=== PATIENT | male | born 1960 | race Asian ===

== ENCOUNTER 2018-06-08 07:23 | Outpatient (CLI) | payer BC ==
[2018-06-08 08:07] LABS: Basophils % (Auto) 0.6 % (0.0-1.8); Eosinophils # (Auto) 0.1 K/mm3 (0.0-0.4); Eosinophils % (Auto) 2.3 % (0.0-4.3); Hematocrit 45.4 % (35.5-45.6); Hemoglobin 15.4 gm/dl (11.8-15.2); Lymphocytes # (Auto) 2.4 K/mm3 (1.2-5.4); Lymphocytes % (Auto) 38.9 % (13.4-35.0); Mean Corpuscular HGB Conc 34 % (32-34); Mean Corpuscular Volume 101 fl (84-94); Monocytes # (Auto) 0.6 K/mm3 (0.0-0.8); Monocytes % (Auto) 9.5 % (0.0-7.3); Platelet Count 155 K/mm3 (140-440); Red Blood Count 4.51 M/mm3 (3.65-5.03)
[2018-06-08 08:23] LABS: Bilirubin,Urine NEG (Negative); Blood,Urine LG (Negative); Color,Urine Yellow (Yellow); Mucus,Urine FEW /HPF; Protein,Urine <15 mg/dL mg/dL (Negative); Urobilinogen,Urine < 2.0 mg/dL (<2.0)
[2018-06-08 08:24] LABS: Alanine Aminotransferase 19 units/L (7-56); Albumin 4.3 g/dL (3.9-5); BUN/Creatinine Ratio 15; Blood Urea Nitrogen 16 mg/dL (9-20); Calcium 9.4 mg/dL (8.4-10.2); Chol/HDL Ratio 2.37 %; HDL Cholesterol 78 mg/dL (40-59); Hemolysis Index 8; LDL Cholesterol,Direct 110 mg/dL (50-130)
[2018-06-08 08:52] LABS: Erythrocyte Sedimentation Rate 7 mm/Hr (0-20)
[2018-06-08 10:13] LABS: Microalbumin/Creatinine Ratio 8.5 ug/mg
== END 2018-06-08 07:24 | disposition home or self-care (01) ==
LOC: LAB 07:23
PROVIDERS: ATTEND Family Medicine
DX: Z00.01 Encounter for general adult medical examination with abnormal findings (principal)
CPT/HCPCS: 36415; 80053; 80061; 81001; 82043; 82306; 82607; 82747; 83036; 84153; 84443; 84550; 85025; 85652; 86140; 87591; 87806

== ENCOUNTER 2019-05-24 08:39 | Outpatient (CLI) | payer BC ==
[2019-05-24 09:55] LABS: Basophils % (Auto) 0.6 % (0.0-1.8); Eosinophils # (Auto) 0.4 K/mm3 (0.0-0.4); Eosinophils % (Auto) 7.6 % (0.0-4.3); Hematocrit 40.6 % (35.5-45.6); Hemoglobin 13.8 gm/dl (11.8-15.2); Lymphocytes # (Auto) 1.9 K/mm3 (1.2-5.4); Lymphocytes % (Auto) 37.3 % (13.4-35.0); Mean Corpuscular HGB Conc 34 % (32-34); Mean Corpuscular Volume 97 fl (84-94); Monocytes # (Auto) 0.5 K/mm3 (0.0-0.8); Monocytes % (Auto) 9.5 % (0.0-7.3); Platelet Count 164 K/mm3 (140-440); Red Blood Count 4.19 M/mm3 (3.65-5.03); Red Cell Distribution Width 13.5 % (13.2-15.2)
[2019-05-24 10:16] LABS: Alanine Aminotransferase 12 units/L (7-56); Albumin 4.1 g/dL (3.9-5); BUN/Creatinine Ratio 16; Blood Urea Nitrogen 16 mg/dL (9-20); Calcium 9.1 mg/dL (8.4-10.2); Chol/HDL Ratio 2.53 %; HDL Cholesterol 63 mg/dL (40-59); Hemolysis Index 2; LDL Cholesterol,Direct 85 mg/dL (50-130); Uric Acid 6.5 mg/dL (3.5-7.6)
[2019-05-24 10:20] LABS: Free T4 (Free Thyroxine) 1.37 ng/dL (0.76-1.46)
[2019-05-24 10:23] LABS: Erythrocyte Sedimentation Rate 8 mm/Hr (0-20)
[2019-05-28 09:28] LABS: Vitamin D, 25-OH, D2 54 ng/mL
== END 2019-05-24 08:40 | disposition home or self-care (01) ==
LOC: LAB 08:39
PROVIDERS: ATTEND Family Medicine
DX: J45.20 Mild intermittent asthma, uncomplicated (principal); J30.9 Allergic rhinitis, unspecified
CPT/HCPCS: 36415; 80053; 80061; 82306; 82550; 82607; 82652; 82747; 82785; 83036; 83615; 84153; 84402; 84439; 84443; 84480; 84550; 85025; 85652; 86140

== ENCOUNTER 2020-06-14 15:26 | Outpatient (CLI) | payer BC ==
--- NOTE | 2020-06-14 16:43 | XRay Report ---
CHEST 2 VIEWS INDICATION / CLINICAL INFORMATION: Pneumonia. COMPARISON: None available. FINDINGS: SUPPORT DEVICES: None. HEART / MEDIASTINUM: No significant abnormality. LUNGS / PLEURA: There is mild parenchymal opacification in the left lower lobe. No pneumothorax. ADDITIONAL FINDINGS: No significant additional findings. IMPRESSION: 1. Mild left lower lobe parenchymal opacification which may indicate pneumonia. Signer Name: Abhilash Holland MD Signed: 06/14/2020 4:38 PM Workstation Name: [id number]
== END 2020-06-14 15:27 | disposition home or self-care (01) ==
LOC: XRAY 15:26
PROVIDERS: ATTEND Internal Medicine
DX: J18.9 Pneumonia, unspecified organism (principal); R91.8 Other nonspecific abnormal finding of lung field
CPT/HCPCS: 71046

== ENCOUNTER 2020-06-19 15:47 | Outpatient (CLI) | payer BC ==
[2020-06-19 16:41] LABS: Hematocrit 40.9 % (35.5-45.6); Hemoglobin 13.8 gm/dl (11.8-15.2); Mean Corpuscular HGB Conc 34 % (32-34); Mean Corpuscular Volume 97 fl (84-94); Platelet Count 169 K/mm3 (140-440); Red Blood Count 4.21 M/mm3 (3.65-5.03); Red Cell Distribution Width 14.4 % (13.2-15.2)
[2020-06-19 16:57] LABS: ABG Base Excess 0.7 mmol/L (-2.0-3.0); ABG Methemoglobin 0.9 % (0.0-1.5); ABG Oxygen Saturation 93.5 % (95.0-99.0); ABG PCO2 34.5 mm Hg; ABG PH 7.461 pH Units (7.350-7.450); ABG PO2 60.6 mm Hg (80.0-90.0)
[2020-06-19 17:12] LABS: Alanine Aminotransferase 35 units/L (7-56); Albumin 3.6 g/dL (3.9-5); BUN/Creatinine Ratio 32; Blood Urea Nitrogen 29 mg/dL (9-20); Calcium 8.6 mg/dL (8.4-10.2); Chol/HDL Ratio 1.57 %; HDL Cholesterol 130 mg/dL (40-59); Hemolysis Index 10; LDL Cholesterol,Direct 87 mg/dL (50-130)
[2020-06-19 22:30] LABS: Total Cells Counted 100
[2020-06-19 22:31] LABS: Band Neutrophils # (Manual) 0.1 K/mm3; Ovalocytes Rare
[2020-06-19 22:32] LABS: Platelet Estimate Consistent w Auto
== END 2020-06-19 15:48 | disposition home or self-care (01) ==
LOC: LAB 15:47
PROVIDERS: ATTEND Internal Medicine
DX: U07.1 COVID-19 (principal)
CPT/HCPCS: 36415; 80053; 80061; 82164; 82550; 82728; 82803; 83615; 83880; 84436; 84443; 84484; 85007; 85025; 85379; 86140

== ENCOUNTER 2020-07-04 15:06 | Outpatient (CLI) | payer BC ==
[2020-07-04 16:04] LABS: ABG Base Excess 1.4 mmol/L (-2.0-3.0); ABG HCO3 23.9 mmol/L (20.0-26.0); ABG Methemoglobin 0.7 % (0.0-1.5); ABG Oxygen Saturation 95.5 % (95.0-99.0); ABG PCO2 31.8 mm Hg; ABG PH 7.493 pH Units (7.350-7.450); ABG PO2 65.1 mm Hg (80.0-90.0)
[2020-07-04 16:23] LABS: Bilirubin,Urine NEG (Negative); Blood,Urine MOD (Negative); Color,Urine Straw (Yellow); Creatinine,Urine 12.2 mg/dL (0.1-20.0); Microalbumin/Creatinine Ratio 98.3 ug/mg; Protein,Urine <15 mg/dL mg/dL (Negative); Urobilinogen,Urine < 2.0 mg/dL (<2.0); WBC,Urine < 1.0 /HPF (0.0-6.0)
[2020-07-04 16:27] LABS: Hematocrit 42.1 % (35.5-45.6); Hemoglobin 14.2 gm/dl (11.8-15.2); Mean Corpuscular HGB Conc 34 % (32-34); Mean Corpuscular Volume 98 fl (84-94); Platelet Count 213 K/mm3 (140-440); Red Cell Distribution Width 16.1 % (13.2-15.2)
[2020-07-04 16:47] LABS: C-Reactive Protein 0.4 mg/dL (0.00-1.30)
[2020-07-04 16:48] LABS: Alanine Aminotransferase 32 units/L (7-56); Albumin 3.8 g/dL (3.9-5); BUN/Creatinine Ratio 30; Blood Urea Nitrogen 24 mg/dL (9-20); Chol/HDL Ratio 1.92 %; HDL Cholesterol 116 mg/dL (40-59); Hemolysis Index 5; LDL Cholesterol,Direct 116 mg/dL (50-130); Uric Acid 5.4 mg/dL (3.5-7.6)
--- NOTE | 2020-07-04 16:48 | XRay Report ---
CHEST 2 VIEWS INDICATION / CLINICAL INFORMATION: FOLLOW UP ON INFILTRATION. COMPARISON: 06/14/2020 FINDINGS: SUPPORT DEVICES: None. HEART / MEDIASTINUM: No significant abnormality. LUNGS / PLEURA: Linear opacity persists in both lung bases and may be chronic No pneumothorax. ADDITIONAL FINDINGS: No significant additional findings. IMPRESSION: Linear opacity persists in both lung bases and may be chronic. Overall no interval change from 021 Signer Name: Kenneth Jones MD FACR Signed: 07/04/2020 4:43 PM Workstation Name: [id number]
[2020-07-04 17:11] LABS: Erythrocyte Sedimentation Rate 30 mm/Hr (0-20)
[2020-07-04 17:18] LABS: Band Neutrophils # (Manual) 0.2 K/mm3; Total Cells Counted 100
[2020-07-04 17:19] LABS: Platelet Estimate Consistent w Auto; RBC Morphology Normal
== END 2020-07-04 15:07 | disposition home or self-care (01) ==
LOC: LAB 15:06
PROVIDERS: ATTEND Internal Medicine
DX: U07.1 COVID-19 (principal)
CPT/HCPCS: 36415; 71046; 80053; 80061; 81001; 82043; 82150; 82550; 82652; 82728; 82803; 83036; 83615; 83690; 83735; 84100; 84153; 84443; 84550; 85007; 85025; 85379; 85652; 86140

== ENCOUNTER 2020-07-18 14:38 | Outpatient (CLI) | payer BC ==
[2020-07-18 15:20] LABS: Alanine Aminotransferase 25 units/L (7-56); Albumin 3.4 g/dL (3.9-5); BUN/Creatinine Ratio 31; Blood Urea Nitrogen 22 mg/dL (9-20); Calcium 8.9 mg/dL (8.4-10.2); Hemolysis Index 4
[2020-07-18 16:29] LABS: Erythrocyte Sedimentation Rate 29 mm/Hr (0-20)
[2020-07-18 16:32] LABS: Basophils % (Auto) 0.4 % (0.0-1.8); Eosinophils # (Auto) 0.1 K/mm3 (0.0-0.4); Eosinophils % (Auto) 0.7 % (0.0-4.3); Hematocrit 39.1 % (35.5-45.6); Hemoglobin 12.9 gm/dl (11.8-15.2); Lymphocytes # (Auto) 3.7 K/mm3 (1.2-5.4); Lymphocytes % (Auto) 38.8 % (13.4-35.0); Mean Corpuscular HGB Conc 33 % (32-34); Mean Corpuscular Volume 100 fl (84-94); Monocytes # (Auto) 1.1 K/mm3 (0.0-0.8); Monocytes % (Auto) 11.5 % (0.0-7.3); Platelet Count 230 K/mm3 (140-440); Red Blood Count 3.91 M/mm3 (3.65-5.03); Red Cell Distribution Width 16.5 % (13.2-15.2)
== END 2020-07-18 14:39 | disposition home or self-care (01) ==
LOC: LAB 14:38
PROVIDERS: ATTEND Internal Medicine
DX: I50.31 Acute diastolic (congestive) heart failure (principal)
CPT/HCPCS: 36415; 80053; 82728; 83615; 83880; 84443; 85025; 85379; 85652; 86140

== ENCOUNTER 2020-08-09 16:00 | Outpatient (CLI) | payer BC ==
[2020-08-09 16:35] LABS: Basophils # (Auto) 0.1 K/mm3 (0.0-0.1); Basophils % (Auto) 0.5 % (0.0-1.8); Eosinophils # (Auto) 0.1 K/mm3 (0.0-0.4); Eosinophils % (Auto) 1.1 % (0.0-4.3); Hematocrit 44.9 % (35.5-45.6); Hemoglobin 14.8 gm/dl (11.8-15.2); Lymphocytes # (Auto) 3.2 K/mm3 (1.2-5.4); Mean Corpuscular HGB Conc 33 % (32-34); Mean Corpuscular Volume 99 fl (84-94); Monocytes # (Auto) 1.1 K/mm3 (0.0-0.8); Monocytes % (Auto) 8.8 % (0.0-7.3); Platelet Count 174 K/mm3 (140-440); Red Blood Count 4.55 M/mm3 (3.65-5.03); Red Cell Distribution Width 16.1 % (13.2-15.2)
[2020-08-09 17:02] LABS: Alanine Aminotransferase 28 units/L (7-56); Albumin 3.9 g/dL (3.9-5); Blood Urea Nitrogen 28 mg/dL (9-20); Calcium 9.4 mg/dL (8.4-10.2); Chol/HDL Ratio 1.74 %; HDL Cholesterol 120 mg/dL (40-59); Hemolysis Index 12; LDL Cholesterol,Direct 102 mg/dL (50-130); Uric Acid 5.1 mg/dL (3.5-7.6)
[2020-08-09 17:07] LABS: BUN/Creatinine Ratio 40
== END 2020-08-09 16:01 | disposition home or self-care (01) ==
LOC: LAB 16:00
PROVIDERS: ATTEND Family Medicine
DX: Z00.00 Encounter for general adult medical examination without abnormal findings (principal); R09.02 Hypoxemia; J12.82 Pneumonia due to coronavirus disease 2019
CPT/HCPCS: 36415; 80053; 80061; 82306; 82607; 82728; 82747; 83036; 83615; 83880; 84443; 84550; 85025; 85379

== ENCOUNTER 2020-09-11 14:04 | Outpatient (CLI) | payer BC ==
[2020-09-11 14:35] LABS: Basophils % (Auto) 0.4 % (0.0-1.8); Eosinophils # (Auto) 0.2 K/mm3 (0.0-0.4); Hematocrit 42.6 % (35.5-45.6); Hemoglobin 14.2 gm/dl (11.8-15.2); Lymphocytes # (Auto) 2.3 K/mm3 (1.2-5.4); Lymphocytes % (Auto) 29.3 % (13.4-35.0); Mean Corpuscular HGB Conc 33 % (32-34); Mean Corpuscular Volume 97 fl (84-94); Monocytes % (Auto) 13.2 % (0.0-7.3); Platelet Count 188 K/mm3 (140-440); Red Blood Count 4.41 M/mm3 (3.65-5.03); Red Cell Distribution Width 16.1 % (13.2-15.2)
[2020-09-11 14:56] LABS: Alanine Aminotransferase 19 units/L (7-56); Albumin 3.8 g/dL (3.9-5); BUN/Creatinine Ratio 20; Blood Urea Nitrogen 16 mg/dL (9-20); Calcium 9.3 mg/dL (8.4-10.2); Hemolysis Index 0
[2020-09-11 14:57] LABS: Erythrocyte Sedimentation Rate 16 mm/Hr (0-20)
== END 2020-09-11 14:05 | disposition home or self-care (01) ==
LOC: LAB 14:04
PROVIDERS: ATTEND Family Medicine
DX: R06.00 Dyspnea, unspecified (principal); Z86.16 Personal history of COVID-19; J12.82 Pneumonia due to coronavirus disease 2019
CPT/HCPCS: 36415; 80053; 82550; 82728; 83615; 83880; 85025; 85379; 85652; 86140

== ENCOUNTER 2021-03-14 16:09 | Outpatient (CLI) | payer BC ==
[2021-03-14 16:48] LABS: Bacteria,Urine 1+ /HPF (Negative); Bilirubin,Urine NEG (Negative); Blood,Urine LG (Negative); Color,Urine Yellow (Yellow); Protein,Urine <15 mg/dL mg/dL (Negative); Urobilinogen,Urine < 2.0 mg/dL (<2.0)
[2021-03-14 16:59] LABS: Basophils % (Auto) 0.1 % (0.0-1.8); Hematocrit 44.3 % (35.5-45.6); Lymphocytes # (Auto) 1.4 K/mm3 (1.2-5.4); Lymphocytes % (Auto) 15.1 % (13.4-35.0); Mean Corpuscular HGB Conc 34 % (32-34); Mean Corpuscular Volume 97 fl (84-94); Monocytes # (Auto) 0.6 K/mm3 (0.0-0.8); Monocytes % (Auto) 6.6 % (0.0-7.3); Platelet Count 185 K/mm3 (140-440); Red Blood Count 4.59 M/mm3 (3.65-5.03); Red Cell Distribution Width 14.5 % (13.2-15.2)
[2021-03-14 17:13] LABS: Alanine Aminotransferase 17 units/L (7-56); Albumin 4.3 g/dL (3.9-5); BUN/Creatinine Ratio 25; Blood Urea Nitrogen 28 mg/dL (9-20); Calcium 9.7 mg/dL (8.4-10.2); Chol/HDL Ratio 1.83 %; HDL Cholesterol 83 mg/dL (40-59); Hemolysis Index 5; LDL Cholesterol,Direct 66 mg/dL (50-130); Uric Acid 7.5 mg/dL (3.5-7.6)
[2021-03-14 17:47] LABS: Erythrocyte Sedimentation Rate 19 mm/Hr (0-20)
[2021-03-19 14:11] LABS: Vitamin D, 25-OH, D2 109 ng/mL
== END 2021-03-14 16:10 | disposition home or self-care (01) ==
LOC: LAB 16:09
PROVIDERS: ATTEND Family Medicine
DX: J45.909 Unspecified asthma, uncomplicated (principal); Z12.2 Encounter for screening for malignant neoplasm of respiratory organs; U07.1 COVID-19
CPT/HCPCS: 36415; 80053; 80061; 81001; 82306; 82550; 82607; 82728; 82747; 83036; 83615; 84402; 84443; 84550; 85025; 85652; 86140

== ENCOUNTER 2021-07-26 15:17 | Outpatient (CLI) | payer BC ==
[2021-07-26 18:17] LABS: C-Reactive Protein 0.4 mg/dL (0.00-1.30); Chol/HDL Ratio 2.58 %; Uric Acid 5.3 mg/dL (3.5-7.6)
[2021-07-26 19:03] LABS: Erythrocyte Sedimentation Rate 10 mm/Hr (0-20)
[2021-07-26 19:06] LABS: Hematocrit 43.9 % (35.5-45.6); Hemoglobin 14.3 gm/dl (11.8-15.2); Mean Corpuscular HGB Conc 33 % (32-34); Mean Corpuscular Volume 97 fl (84-94); Platelet Count 176 K/mm3 (140-440); Red Blood Count 4.54 M/mm3 (3.65-5.03); Red Cell Distribution Width 13.6 % (13.2-15.2)
[2021-07-26 20:29] LABS: Total Cells Counted 100
[2021-07-26 20:30] LABS: Basophils % (Manual) 0 % (0.0-1.8)
[2021-07-26 20:31] LABS: Platelet Estimate Consistent w Auto; RBC Morphology Normal
== END 2021-07-26 15:18 | disposition home or self-care (01) ==
LOC: LAB 15:17
PROVIDERS: ATTEND Family Medicine
DX: J44.9 Chronic obstructive pulmonary disease, unspecified (principal); J84.10 Pulmonary fibrosis, unspecified; J45.20 Mild intermittent asthma, uncomplicated; J12.82 Pneumonia due to coronavirus disease 2019; G93.3 Postviral and related fatigue syndromes; B97.89 Other viral agents as the cause of diseases classified elsewhere; D51.3 Other dietary vitamin B12 deficiency anemia; E55.9 Vitamin D deficiency, unspecified; U09.9 Post COVID-19 condition, unspecified
CPT/HCPCS: 36415; 80061; 82550; 82607; 82728; 82747; 83036; 83615; 84153; 84402; 84443; 84550; 85007; 85025; 85652; 86140

== ENCOUNTER 2021-08-13 15:34 | Outpatient (CLI) | payer BC ==
--- NOTE | 2021-08-14 06:57 | XRay Report ---
CHEST 2 VIEWS INDICATION: CHEST TIGHTNESS, COUGH. COMPARISON: 07/04/2020 FINDINGS: Support devices: None. Heart: Within normal limits. Lungs/Pleura: Mild interstitial thickening and basilar scarring remains. Elevation of the left hemidi aphragm is unchanged. No significant pleural effusion. IMPRESSION: Stable chest. Signer Name: Derrick Eisenberg MD Signed: 08/14/2021 6:52 AM Workstation Name: [id number]
== END 2021-08-13 15:35 | disposition home or self-care (01) ==
LOC: XRAY 15:34
PROVIDERS: ATTEND Internal Medicine
DX: R05.9 Cough, unspecified (principal); R07.89 Other chest pain
CPT/HCPCS: 71046

== ENCOUNTER 2021-12-17 09:47 | Outpatient (CLI) | payer BC ==
[2021-12-17 11:21] LABS: Basophils % (Auto) 0.7 % (0.0-1.8); Eosinophils # (Auto) 0.3 K/mm3 (0.0-0.4); Eosinophils % (Auto) 4.5 % (0.0-4.3); Hematocrit 44.6 % (35.5-45.6); Hemoglobin 14.4 gm/dl (11.8-15.2); Lymphocytes # (Auto) 2.8 K/mm3 (1.2-5.4); Lymphocytes % (Auto) 40.3 % (13.4-35.0); Mean Corpuscular HGB Conc 32 % (32-34); Mean Corpuscular Volume 96 fl (84-94); Monocytes # (Auto) 0.6 K/mm3 (0.0-0.8); Monocytes % (Auto) 8.8 % (0.0-7.3); Platelet Count 158 K/mm3 (140-440); Red Blood Count 4.64 M/mm3 (3.65-5.03); Red Cell Distribution Width 13.6 % (13.2-15.2)
[2021-12-17 11:30] LABS: Alanine Aminotransferase 18 units/L (7-56); Albumin 4.1 g/dL (3.9-5); BUN/Creatinine Ratio 18; Blood Urea Nitrogen 16 mg/dL (9-20); Calcium 9.2 mg/dL (8.4-10.2); Chol/HDL Ratio 2.21 %; HDL Cholesterol 69 mg/dL (40-59); Hemolysis Index 1; LDL Cholesterol,Direct 87 mg/dL (50-130); Uric Acid 6.2 mg/dL (3.5-7.6)
[2021-12-17 11:55] LABS: Erythrocyte Sedimentation Rate 18 mm/Hr (0-20)
[2021-12-17 15:12] LABS: Color,Urine Yellow (Yellow)
[2021-12-17 15:13] LABS: Bilirubin,Urine Negative (Negative)
[2021-12-17 15:14] LABS: Blood,Urine 2+ (Negative); Protein,Urine <15 mg/dL mg/dL (Negative); WBC,Urine < 1.0 /HPF (0.0-6.0)
[2021-12-17 15:25] LABS: Creatinine,Urine 24.8 mg/dL (0.1-20.0)
[2021-12-17 15:28] LABS: Microalbumin/Creatinine Ratio 48.3 ug/mg
== END 2021-12-17 09:48 | disposition home or self-care (01) ==
LOC: LAB 09:47
PROVIDERS: ATTEND Family Medicine
DX: J84.10 Pulmonary fibrosis, unspecified (principal); D86.0 Sarcoidosis of lung; D51.3 Other dietary vitamin B12 deficiency anemia; J45.20 Mild intermittent asthma, uncomplicated; K21.9 Gastro-esophageal reflux disease without esophagitis; E55.9 Vitamin D deficiency, unspecified; J30.89 Other allergic rhinitis
CPT/HCPCS: 36415; 80053; 80061; 81001; 82043; 82607; 82747; 83036; 84550; 85025; 85652; 86140